=== PATIENT | male | born 1985 | race Caucasian/White ===

== ENCOUNTER 2019-10-02 15:14 | Outpatient (REF) | payer MEDICAID, SELFPAY ==
[2019-10-02 19:15] LABS: Abs Immature Grans 0.02 10^3/uL (0.0-0.06); Absolute Basophil Count 0.02 10^3/uL (0.0-0.2); Absolute Eosinophil Count 0.19 10^3/uL (0.0-0.7); Absolute Lymphocyte Count 2.32 10^3/uL (1.2-3.4); Absolute Monocyte Count 0.42 10^3/uL (0.1-0.8); Absolute Neutrophil Count 4.36 10^3/uL (1.2-6.7); Basophils % 0.3; Eosinophils % 2.6; HCT 46.6 % (40.0-50.0); HGB 15.8 g/dL (13.5-17.5); Immature Grans % 0.3; Lymphocytes % 31.7; MCH 29.4 pg (27.0-33.0); MCHC 33.9 % (32.0-36.0); MCV 86.6 fL (80-95); MPV 11.3 fL (8.0-11.0); Monocytes % 5.7; Neutrophils % 59.4; Nucleated RBC 0 %; Platelet Count 213 10^3/uL (130-400); RBC 5.38 10^6/uL (4.36-5.78); RDW 12.2 % (11.8-14.1); RDW-SD 38.9 fL; WBC 7.33 10^3/uL (4.4-10.8)
[2019-10-02 19:39] LABS: Hemoglobin A1C 8.3 % (3.8-5.6)
[2019-10-02 19:41] LABS: ALT 28 U/L (16-63); AST 11 U/L (15-37); Albumin 4.3 g/dL (3.4-5.0); Alkaline Phosphatase 89 U/L (46-116); Anion Gap 9.5 mmol/L (3-11); BUN 15 mg/dL (7-18); Bilirubin, Total 0.6 mg/dL (0.2-1.0); CO2 30.5 mmol/L (21.0-32.0); Calcium 9.4 mg/dL (8.5-10.1); Calculated LDL 165 mg/dL (<100); Chloride 103 mmol/L (98-107); Cholesterol 240 mg/dL (<200); Glucose 45 mg/dL (74-106); HDL Cholesterol 54 mg/dL (40-60); Potassium 3.9 mmol/L (3.5-5.1); Sodium 143 mmol/L (136-145); TSH (W/Ref FT4) 1.09 uIU/mL (0.36-3.74); Total Protein 7.6 g/dL (6.4-8.2); Triglyceride 107 mg/dL (<150)
== END 2019-10-02 15:34 ==
LOC: NCHCN 15:14
PROVIDERS: Visit Provider Physician Assistant
DX: E78.5 Hyperlipidemia, unspecified (principal); E10.9 Type 1 diabetes mellitus without complications; F41.8 Other specified anxiety disorders
CPT/HCPCS: 80053; 80061; 83036; 84443; 85025

== ENCOUNTER 2020-01-02 12:01 | Outpatient (REF) | payer MEDICAID, SELFPAY ==
[2020-01-02 21:38] LABS: COMMENT (LAB VIEW ONLY) 71.54 mg/dL; Microalb ug/mg Crea 96.6 ug/mg Cr
[2020-01-02 21:44] LABS: ALT 22 U/L (16-63); AST 7 U/L (15-37); Alkaline Phosphatase 100 U/L (46-116); Anion Gap 8.1 mmol/L (3-11); BUN 28 mg/dL (7-18); Bilirubin, Total 0.4 mg/dL (0.2-1.0); CO2 33.9 mmol/L (21.0-32.0); Calcium 9.4 mg/dL (8.5-10.1); Calculated LDL 116 mg/dL (<100); Chloride 101 mmol/L (98-107); Cholesterol 189 mg/dL (<200); Glucose 147 mg/dL (74-106); HDL Cholesterol 57 mg/dL (40-60); Sodium 143 mmol/L (136-145); Total Protein 7.5 g/dL (6.4-8.2); Triglyceride 82 mg/dL (<150)
== END 2020-01-02 12:21 ==
LOC: NCHCN 12:01
PROVIDERS: PCP Physician Assistant; Visit Provider Physician Assistant
DX: E78.5 Hyperlipidemia, unspecified (principal); F41.8 Other specified anxiety disorders
CPT/HCPCS: 80053; 80061; 82043; 82570

== ENCOUNTER 2020-07-01 18:41 | Outpatient (REF) | payer MEDICAID, SELFPAY ==
[2020-07-01 17:10] LABS: Abs Immature Grans 0.01 10^3/uL (0.0-0.06); Absolute Basophil Count 0.03 10^3/uL (0.0-0.2); Absolute Eosinophil Count 0.37 10^3/uL (0.0-0.7); Absolute Lymphocyte Count 1.56 10^3/uL (1.2-3.4); Absolute Monocyte Count 0.42 10^3/uL (0.1-0.8); Absolute Neutrophil Count 4.58 10^3/uL (1.2-6.7); Basophils % 0.4; Eosinophils % 5.3; HCT 47.7 % (40.0-50.0); HGB 15.6 g/dL (13.5-17.5); Immature Grans % 0.1; Lymphocytes % 22.4; MCH 28.2 pg (27.0-33.0); MCHC 32.7 % (32.0-36.0); MCV 86.1 fL (80-95); MPV 11.3 fL (8.0-11.0); Neutrophils % 65.8; Nucleated RBC 0 %; Platelet Count 214 10^3/uL (130-400); RBC 5.54 10^6/uL (4.36-5.78); RDW 12.8 % (11.8-14.1); RDW-SD 39.9 fL; WBC 6.97 10^3/uL (4.4-10.8)
[2020-07-01 17:58] LABS: ALT 26 U/L (16-63); AST 12 U/L (15-37); Albumin 3.9 g/dL (3.4-5.0); Alkaline Phosphatase 90 U/L (46-116); Anion Gap 9.3 mmol/L (3-11); BUN 13 mg/dL (7-18); Bilirubin, Total 0.4 mg/dL (0.2-1.0); CO2 30.7 mmol/L (21.0-32.0); CREATININE 0.8 mg/dL (0.70-1.30); Calcium 9.1 mg/dL (8.5-10.1); Calculated LDL 155 mg/dL (<100); Chloride 102 mmol/L (98-107); Cholesterol 223 mg/dL (<200); Glucose 94 mg/dL (74-106); HDL Cholesterol 49 mg/dL (40-60); Potassium 4.1 mmol/L (3.5-5.1); Sodium 142 mmol/L (136-145); Total Protein 7.3 g/dL (6.4-8.2); Triglyceride 97 mg/dL (<150)
[2020-07-01 18:05] LABS: Microalb ug/mg Crea 138.3 ug/mg Cr
== END 2020-07-01 18:42 | disposition home or self-care (01) ==
LOC: NCHCN 18:41
PROVIDERS: PCP Physician Assistant; Visit Provider Physician Assistant
DX: E78.5 Hyperlipidemia, unspecified (principal); E10.9 Type 1 diabetes mellitus without complications
CPT/HCPCS: 80053; 80061; 82043; 82570; 85025

== ENCOUNTER 2022-06-03 09:40 | Outpatient (REF) | payer MEDICAID, SELFPAY ==
[2022-06-03 19:54] LABS: ALT 31 U/L (16-63); AST 17 U/L (15-37); Albumin 4.1 g/dL (3.4-5.0); Alkaline Phosphatase 91 U/L (46-116); Anion Gap 6.8 mmol/L (3-11); BUN 16 mg/dL (7-18); Bilirubin, Total 0.5 mg/dL (0.2-1.0); CO2 31.2 mmol/L (21.0-32.0); CREATININE 0.8 mg/dL (0.70-1.30); Calcium 10.2 mg/dL (8.5-10.1); Chloride 99 mmol/L (98-107); Estimated GFR 117.63 (mL/min/1.73m2); Glucose 163 mg/dL (74-106); Potassium 4.1 mmol/L (3.5-5.1); Sodium 137 mmol/L (136-145); Total Protein 7.9 g/dL (6.4-8.2)
== END 2022-06-03 09:41 | disposition home or self-care (01) ==
LOC: NCHCN 09:40
PROVIDERS: PCP Physician Assistant; Visit Provider Physician Assistant
DX: E10.3593 Type 1 diabetes mellitus with proliferative diabetic retinopathy without macular edema, bilateral (principal)
CPT/HCPCS: 80053

== ENCOUNTER 2023-03-31 19:20 | Outpatient (REF) | payer MEDICAID, SELFPAY ==
--- OUTSIDE RECORDS SUMMARY | 2023-03-31 19:24 | XMS_ITS | Continuity of Care Document ---
Author Name [facility] Address [address] [place] [address] Organization [facility] Address [address] [place] [address] Care Team Providers Care Campus Recruiter Name Role Phone Rae Moses Primary Care Physician Allergies, Adverse Reactions, Alerts No known allergies. Medications Active Medications Medication Units Route Start Date Status Venlafaxine MG ORAL June 24, 2021 Active Atorvastatin MG June 24, 2021 Active Insulin Aspart U-100 [Novolo g U-100 Insulin Aspart] June 24, 2021 Active Blood-Glucose Sensor [Dexcom G6 Sensor] EA MULTIPL E ROUTES June 24, 2021 Active Blood-Glucose Transmitter [D excom G6 Transmitter] EA MULTIPLE ROUTES June 24, 2021 Active Problem List No problem information available. Procedures Procedure Date Status Wrist 3 vw Min LT June 24, 2021 completed Hand 3 vw Min LT June 24, 2021 completed Relevant Diagnostic Tests and/or Laboratory Data No known relevant diagnostic tests, laboratory data, and/or discharge summary. Advance Directives Advance Directive Response Recorded Date/ Time Do we have a copy on file here at [facility]? No June 24, 2021 4:48pm Does patient have an Advanced Directive? No June 24, 2021 4:48pm Pt has a Living Will? No June 24 4:48pm Pt has a Power of Lining Presser? No June 24, 2021 4:48pm Hospital Discharge Instructions No known hospital discharge instructions. Hospital Discharge Medications Medication Dose Units Route Sig Qty Days Order Date Status Ins tructions Venlafaxine MG ORAL June 24, 2021 Active Atorvastatin MG June 24, 2021 Active Insulin Aspart U-100 June 24, 2021 Active Blood-Glucose Sensor EA MULTIPLE ROUTES June 24, 2021 Active Blood-Glucose Transmitter EA MULTIPLE ROUTES June 24, 2021 Active Encounters Encounter Facility Location Admit/Visit Date Discharge/Departure Date Attending Provider Registered Emergency [facility] [place] June 24, 2021 4:42pm Functional Status Query Response Date Recorded Comment Living Situation Home June 24, 2021 5:24pm Immunizations No known immunizations. Plan of Care No Known Plan of Care Information Social History Query Response Date Recorded Comment Alcohol Use Yes June 24, 2021 5:24pm Smoking Status Current some day smoker June 24, 2021 5: 24pm alcohol intake frequency a few times a month June 24, 2 022 5:24pm substance use type marijuana June 24, 2021 5:24pm Query Response Start Date Stop Date Smoking Status Current some day smoker Vital Signs Vital Reading Result Reference Range Collection Date/Time Weight 92.986 kg June 24, 2021 5: 24pm Temperature 98.1 F 97.6 F-99.6 F June 24, 2021 5 :24pm Pulse 79 BPM 60-100 June 24, 2021 5: 24pm Respiration 13 RPM 12-24 June 24, 2021 5: 24pm Pulse Oximetry 99 % 95-100 June 24, 2021 5:24pm Blood Pressure Systolic 128 100-140 June 24, 2021 5:24pm Blood Pressure Diastolic 62 50-85 June 24, 2021 5:24pm
--- OUTSIDE RECORDS SUMMARY | 2023-03-31 19:24 | XMS_ITS | Continuity of Care Document ---
Author Name [facility] Address [address] [place] [address] Organization [facility] Address [address] [place] [address] Care Team Providers Care Library Services Coordinator Name Role Phone Rae Moses Primary Care Physician [phone] Allergies, Adverse Reactions, Alerts No known allergies. [...] 3 vw Min LT June 24, 2021 active Hand 3 vw Min LT June 24, 2021 completed Relevant Diagnostic Tests and/or Laboratory Data No known relevant diagnostic tests, laboratory data, and/or discharge summary. Advance Directives Advance Directive Response Recorded Date/ Time Do we have a copy on file here at [facility]? No June 24, 2021 4:48pm Does patient have an Advanced Directive? No June 24, 2021 4:48pm Pt has a Living Will? No June 24 4:48pm Pt has a Power of Ep Specialist? No June 24, 2021 4:48pm Hospital Discharge [...] Date Discharge/Departure Date Attending Provider Registered Emergency [facility] [place] June 24, 2021 4:42pm Functional [...]
--- OUTSIDE RECORDS SUMMARY | 2023-03-31 19:24 | XMS_ITS | Continuity of Care Document ---
Author Name [facility] Address [address] [place] [address] Organization [facility] Address [address] [place] [address] Care Team Providers Care Music Instructor Name Role Phone Rae Moses Primary Care [...] ROUTES June 24, 2021 Active Problem List Inactive/Resolved Problems Medical Problem Onset Date Status Left wrist sprain Inactive Procedures Procedure Date Status Wrist 3 vw Min LT June 24, 2021 completed Hand 3 vw Min LT June 24, 2021 completed Relevant Diagnostic Tests and/or Laboratory Data No known relevant diagnostic tests, laboratory data, and/or discharge summary. Advance Directives Advance Directive Response Recorded Date/ Time Do we have a copy on file here at [facility]? No June 24, 2021 4:48pm Does patient have an Advanced Directive? No June 24, 2021 4:48pm Pt has a Living Will? No June 24 4:48pm Pt has a Power of Aerospace Mechanic? No June 24, 2021 4:48pm Hospital Discharge Instructions Additional Discharge Instructions Remove the wrist splint multiple times throughout the day to perform gentle range of motion exercises. Apply ice to the area of pain for 15-minute periods every 3 hours. Use Tylenol and/or ibuprofen as needed for pain relief. Follow-up with your primary care provider for repeat x-rays if pain/range of motion does not improve within the week. No Instructions/Education Pr ovided Hospital Discharge Medications Medication Dose Units Route Sig Qty Days Order Date Status Ins tructions Venlafaxine MG ORAL June 24, 2021 Active Atorvastatin MG June 24, 2021 Active Insulin Aspart U-100 June 24, 2021 Active Blood-Glucose Sensor EA MULTIPLE ROUTES June 24, 2021 Active Blood-Glucose Transmitter EA MULTIPLE ROUTES June 24, 2021 Active Encounters Encounter Facility Location Admit/Visit Date Discharge/Departure Date Attending Provider Departed Emergency [facility] June 24, 2021 4:42pm June 24, 2021 6:42pm Functional Status Query Response Date Recorded Comment [...]
--- OUTSIDE RECORDS SUMMARY | 2023-03-31 19:24 | XMS_ITS | Continuity of Care Document ---
Author Name Unknown Organization [facility] Address [address] [place] [address] Care Team Providers Care Human Service Technician Name Role Phone Rae Moses Primary Care Physician [phone] Encounter [facility] Date(s): 03/01/23 - 03/01/[address] [address] Discharge Disposition: Home or Self Care Attending Physician: Chitra Olmedo APRN Admitting Physician: Chitra Olmedo APRN Referring Physician: Chitra Olmedo APRN Immunizations Given and Recorded Vaccine Date Status Refusal Reason SARS-CoV-2 (COVID-19) mRNA-1273 vaccine 06/03/20 R ecorded SARS-CoV-2 (COVID-19) mRNA-1273 vaccine 05/06/20 R ecorded Results Laboratory List Name Date Hepatic Function Panel 03/01/23 GGT 03/01/23 Most recent to oldest [Reference Range]: 1 AST [15-37 unit/L] 11 unit/L *LOW* (03/01/23 7:23 AM) ALT [16-63 unit/L] 20 unit/L (03/01/23 7:23 AM) Albumin Level [3.4-5.0 g/dL] 3.2 g/dL *LOW* (03/01/23 7:23 AM) Protein Total [6.4-8.2 g/dL] 6.8 g/dL (03/01/23 7:23 AM) Bilirubin Total [0.2-1.0 mg/dL] 0.3 mg/d L (03/01/23 7:23 AM) Alk Phos [46-146 unit/L] 80 unit/L (03/01/23 7:23 AM) Bilirubin Direct [0.00-0.20 mg/dL] 0.08 mg/dL (03/01/23 7:23 AM) GGT [15-85 unit/L] 16 unit/L (03/01/23 7:23 AM) Social History Social History Type Response Sex Male Patient Care team information Care Team Personnel Name: Rae Moses PA-C Position: PowerChart View Only Member Role: Informed Provider Address: Address: [address] [address]- [place] Care Team Related Persons Name: SIN BRIGHT
--- OUTSIDE RECORDS SUMMARY | 2023-03-31 19:24 | XMS_ITS | Continuity of Care Document ---
Author Name [facility] Address [address] [place] [address] Organization [facility] Address [address] [place] [address] Care Team Providers Care Senior Center Director Name Role Phone Rae Moses Primary Care [...] ROUTES June 24, 2021 Active Problem List Active Problems Medical Problem Onset Date Status Left wrist sprain Active Procedures Procedure Date Status Wrist 3 vw Min LT June 24, 2021 completed Hand 3 vw Min LT June 24, 2021 completed Relevant Diagnostic Tests and/or Laboratory Data No known relevant diagnostic tests, laboratory data, and/or discharge summary. Advance Directives Advance Directive Response Recorded Date/ Time Do we have a copy on file here at [facility]? No June 24, 2021 4:48pm Does patient have an Advanced Directive? No June 24, 2021 4:48pm Pt has a Living Will? No June 24 4:48pm Pt has a Power of Air Control Electronics Operator? No June 24, 2021 4:48pm Hospital Discharge [...] Date Discharge/Departure Date Attending Provider Departed Emergency [facility] Urgent [facility] June 24, 2021 4:42pm June 24, 2021 [...]
--- OUTSIDE RECORDS SUMMARY | 2023-03-31 19:24 | XMS_ITS | Continuity of Care Document ---
Author Name Unknown Address [address] [place] [address] [id number] [address] [facility] Address [address] [place] [address] Phone Care Team Providers Care It Network Administrator Name Role Phone LINH Moses Primary Care Provider Allergies, Adverse Reactions, Alerts No known allergies Social History Smoking Status Status Start Date End Date Date of Observa tion Current some day smoker June 24, 2021 5:24pm Observation Status Observation Response Date of Response Alcohol Use Yes June 24, 2021 5 :24pm alcohol intake frequency a few times a month June 24, 2021 5:24pm substance use type marijuana June 24 5:24pm Smoking Status Current some day smoker June 5:24pm Additional Data Assigned Sex Male Problems Active Problems Medical Problem Onset Date Status Left wrist sprain Active Medications Medication Status Dose Units Route Directions Qty Days St art Date End Date Instructions Venlafaxine Active MG PO June 24, 2021 5:23pm Atorvastatin Active MG TABLET June 24, 2021 5:23pm Insulin Aspart U-100 (Novolog U-100 Insulin Aspart) 100 unit/mL solution Active SOLUTION June 24, 2021 5:23pm Blood-Glucose Sensor (Dexcom G6 Sensor) device Active EA MR June 24, 2021 5:23pm Blood-Glucose Transmitter (Dexcom G6 Transmitter) device Active EA MR June 24, 2021 5:23pm Procedures Procedure Date Performed Status Hand 3 vw Min LT June 24, 2021 5:34pm completed Wrist 3 vw Min LT June 24, 2021 5:34pm complete d Relevant Diagnostic Tests and/or Laboratory Data Diagnostic Imaging Reports Report Dictated Date/Time Dictated By Status Radiology Report June 24, 2021 6:16pm Rosalinda mckeon MD completed [facility] RADIOLOGY REPORT PATIENT NAME: SHYAM TSANG 89 DATE OF : 1985 ATTENDING/ER PHYSICIAN: ER/ATTENDING PHYSICIAN: Lillian Evans NP PRIMARY CARE PHYS: LINH Leslie ADMITTING PHYSICIAN: CONSULTING PHYSICIAN: PROCEDURE DATE: 06/24/21 REPORT STATUS: Signed DICTATING PHYSICIAN: Rosalinda Saunders MD REASON FOR EXAM: TTP 1st MC PROCEDURE INFORMATION: Exam: XR Left Hand Exam date and time: 06/24/2021 5:48 PM Age: 35 years old Clinical indication: Pain; Hand; Left; Additional info: Ttp 1st mc TECHNIQUE: Imaging protocol: XR Left hand. Views: 3 or more views. COMPARISON: No relevant prior studies available. FINDINGS: Bones/joints: The bones appear intact. There is no evidence of acute or healing fracture. There is no bone destruction or periosteal reaction. The joints are normally aligned and articulated. Soft tissues: The soft tissues are within normal limits. IMPRESSION: No acute osseous pathology appreciated. Electronically Signed By : Rosalinda Saunders MD dd: [id number]/24/[id number]/[id number] Report Dictated Date/Time Dictated By Status Radiology Report June 24, 2021 6:18pm Rosalinda mckeon MD completed [facility] RADIOLOGY REPORT PATIENT NAME: SHYAM TSANG 89 DATE OF : 1985 ATTENDING/ER PHYSICIAN: ER/ATTENDING PHYSICIAN: Lillian Evans NP PRIMARY CARE PHYS: LINH Leslie ADMITTING PHYSICIAN: CONSULTING PHYSICIAN: PROCEDURE DATE: 06/24/21 REPORT STATUS: Signed DICTATING PHYSICIAN: Rosalinda Saunders MD REASON FOR EXAM: Snuffbox tenderness PROCEDURE INFORMATION: Exam: XR Left Wrist Exam date and time: 06/24/2021 5:50 PM Age: 35 years old Clinical indication: Pain; Wrist; Left; Additional info: Snuffbox tenderness TECHNIQUE: Imaging protocol: XR Left wrist. Views: 3 or more views. COMPARISON: DX Hand 3 vw Min LT 06/24/2021 5:48 PM FINDINGS: Bones/joints: The bones appear intact. No acute fracture is identified. The joints are normally aligned and articulated. Soft tissues: The soft tissues are within normal limits. IMPRESSION: No acute osseous injury appreciated. Follow-up radiographs in 5-7 days may be helpful if there is ongoing clinical concern for occult fracture. Electronically Signed By : Rosalinda Saunders MD dd: 06/24/[id number]/[id number] Vital Signs Vital Reading Result Reference Range Collection Date/Time Weight 92.98 kg June 24, 2021 5:24pm Body Temperature 98.1 [degF] 97.6-99.6 June 24, 2 022 5:24pm Heart Rate 79 /min 60-100 June 24, 2021 5:24pm Respiratory rate 13 /min 12-24 June 24, 2 022 5:24pm Oxygen saturation by Pulse oximetry 99 % 95-10 0 June 24, 2021 5:24pm BP Systolic 128 mm[Hg] 100-140 June 24, 2021 5:24pm BP Diastolic 62 mm[Hg] 50-85 June 24, 2021 5:24pm Advance Directives Advance Directive Response Recorded Date/ Time Does patient have an Advanced Directive? No June 24, 2021 4:48pm Do we have a copy on file here at [facility]? No June 24, 2021 4:48pm Pt has a Living Will? No June 24, 2021 4:48pm Do we have a copy on file here at [facility]? No June 24, 2021 4:48pm Pt has a Power of Business Services Intern? No June 24, 2021 4:48pm Do we have a copy on file here at [facility]? No June 24, 2021 4:48pm Insurance Providers Guarantor SHYAM TSANG Address [address] [place] [address] Contact Info. Home Phone: Payer Policy Id Coverage Id Subscriber's Name Subscriber Id Effective Date Expiration Date SELF PAY Self N/A Encounters Encounter Location(s) Arrival/Admit Date Discharge/Depart Date Provider(s) Departed Emergency [facility] June 24, 2021 4:42pm June 24, 2021 6:42pm null Functional Status Observation Response Date Recorded Living Situation Home June 24, 2021 5:24pm Plan of Treatment Future Tests Future scheduled test information is unavailable Pending Tests Pending diagnostic test information is unavailable Future Visits Future appointment information is unavailable Referrals to Other Providers Reason for Referral Referral Start Date Provider Provider Contact Information Provider Address LINH Leslie Work Phone: [address] [place] [address] Future Procedures Future procedure information is unavailable Future Medications Future medication information is unavailable Patient Instructions Patient instructions are unavailable Hospital Discharge Instructions Additional Instructions Remove the wrist splint multiple times [...]
--- OUTSIDE RECORDS SUMMARY | 2023-03-31 19:24 | XMS_ITS | Continuity of Care Document ---
Author Name Unknown Organization [facility] Address [address] [place] [address] Care Team Providers Care Braille Typist Name Role Phone Rae Moses Primary Care Physician [phone] Encounter [facility] Date(s): 02/08/23 - 02/08/[address] [address] Discharge Disposition: Home or Self Care Attending Physician: Chitra Olmedo APRN Admitting Physician: Chitra Olmedo APRN Referring Physician: Chitra Olmedo APRN Immunizations Given and Recorded Vaccine Date Status Refusal Reason SARS-CoV-2 (COVID-19) mRNA-1273 vaccine 06/03/20 R ecorded SARS-CoV-2 (COVID-19) mRNA-1273 vaccine 05/06/20 R ecorded Results Laboratory List Name Date Automated Diff 02/08/23 CBC w/ Diff 02/08/23 GGT 02/08/23 Hepatic Function Panel 02/08/23 Most recent to oldest [Reference Range]: 1 WBC [5.0-10.0 x10^3/mcL] 9.5 x10^3/mcL (02/08/23 1:43 PM) RBC [4.6-6.0 x10^6/mcL] 4.9 x10^6/mcL (02/08/23 1:43 PM) Neutro Auto [40.0-75.0 %] 68.9 % (02/08/23 1:43 PM) Lymph Auto [20.0-50.0 %] 21.5 % (02/08/23 1:43 PM) Nicholas Auto [2.0-15.0 %] 5.3 % (02/08/23 1:43 PM) Basophil Auto [0.0-1.0 %] 0.3 % (02/08/23 1:43 PM) MCV [80.0-96.0 fL] 88.6 fL (02/08/23 1:43 PM) AST [15-37 unit/L] 9 unit/L *LOW* (02/08/23 1:43 PM) ALT [16-63 unit/L] 12 unit/L *LOW* (02/08/23 1:43 PM) MCHC [31.0-35.0 g/dL] 33.5 g/dL (02/08/23 1:43 PM) Hct [41.0-51.0 %] 43.6 % (02/08/23 1:43 PM) Albumin Level [3.4-5.0 g/dL] 3.1 g/dL *LOW* (02/08/23 1:43 PM) Protein Total [6.4-8.2 g/dL] 7.3 g/dL (02/08/23 1:43 PM) MCH [26.0-32.0 pg] 29.7 pg (02/08/23 1:43 PM) Neutro Absolute 6.6 x10^3/mcL *NA* (02/08/23 1:43 PM) Bilirubin Total [0.2-1.0 mg/dL] 0.2 mg/d L (02/08/23 1:43 PM) Hgb [14.0-18.0 g/dL] 14.6 g/dL (02/08/23 1:43 PM) Alk Phos [46-146 unit/L] 106 unit/L (02/08/23 1:43 PM) Bilirubin Direct [0.00-0.20 mg/dL] 0.08 mg/dL (02/08/23 1:43 PM) Platelets [130-450 x10^3/mcL] 281 x10^3/ mcL (02/08/23 1:43 PM) GGT [15-85 unit/L] 15 unit/L (02/08/23 1:43 PM) RDW-CV [11.5-14.5 %] 12.3 % (02/08/23 1:43 PM) Imm Gran Auto [0.0-0.9 %] 0.2 % (02/08/23 1:43 PM) Eos, Auto [1.0-6.0 %] 3.8 % (02/08/23 1:43 PM) Social History Social History Type Response Sex Male Patient Care team information Care Team Personnel Name: Rae Moses PA-C Position: PowerChart View Only Member Role: Informed Provider Address: Address: [id number] [place] [address] Care Team Related Persons Name: SIN BRIGHT
--- OUTSIDE RECORDS SUMMARY | 2023-03-31 19:24 | XMS_ITS | Continuity of Care Document ---
Author Name [facility] Address [address] [place] [address] Organization [facility] Address [address] [place] [address] Care Team Providers Care Certified Nutritionist Name Role Phone Rae Moses Primary Care [...] Problem List No problem information available. Procedures No known history of procedures. Relevant Diagnostic Tests and/or Laboratory Data No known relevant diagnostic tests, laboratory data, and/or discharge summary. Advance Directives Advance Directive Response Recorded Date/ Time Do we have a copy on file here at [facility] [place] No June 24, 2021 4:48pm Does patient have an Advanced Directive? No June 24, 2021 4:48pm Pt has a Living Will? No June 24 4:48pm Pt has a Power of Road Design Engineer? No June 24, 2021 4:48pm Hospital Discharge [...] Date Discharge/Departure Date Attending Provider Registered Emergency [facility] June 24, 2021 4:42pm Functional Status No known functional status. Immunizations No known immunizations. Plan of Care No Known Plan of Care Information Social History No known social history. Vital Signs No known vital signs results.
--- OUTSIDE RECORDS SUMMARY | 2023-03-31 19:24 | XMS_ITS | Continuity of Care Document ---
Author Name [facility] Address [address] [place] [address] Organization [facility] Address [address] [place] [address] Care Team Providers Care Shot Hole Driller Name Role Phone Rae Moses Primary Care [...] have a copy on file here at [facility]? No June 24, 2021 4:48pm Does patient have an Advanced Directive? No June 24, 2021 4:48pm Pt has a Living Will? No June 24 4:48pm Pt has a Power of Wire Turning Machine Operator? No June 24, 2021 4:48pm Hospital [...] Date Discharge/Departure Date Attending Provider Registered Emergency [facility] Urgent [facility] June 24, 2021 4:42pm Functional Status Query [...]
--- OUTSIDE RECORDS SUMMARY | 2023-03-31 19:24 | XMS_ITS | Continuity of Care Document ---
Author Name Unknown Organization [facility] Address [address] [place] [address] Care Team Providers Care Geological Manager Name Role Phone Rae Moses Primary Care Physician Encounter [facility] Date(s): 03/28/23 - 03/28/[address] [address] Discharge Disposition: Home or Self Care Attending Physician: Chitra Olmedo APRN Admitting Physician: Chitra Olmedo APRN Referring Physician: Chitra Olmedo APRN Immunizations Given and Recorded Vaccine Date Status Refusal Reason SARS-CoV-2 (COVID-19) mRNA-1273 vaccine 06/03/20 R ecorded SARS-CoV-2 (COVID-19) mRNA-1273 vaccine 05/06/20 R ecorded Results Laboratory List Name Date Valproic Acid Level 03/28/23 Most recent to oldest [Reference Range]: 1 Valproic Acid Level [50-100 ug/mL] 51 ug /mL (03/28/23 11:08 AM) Social History Social History Type Response Sex Male Patient Care team information Care Team Personnel Name: Rae Moses PA-C Position: PowerChart View Only Member Role: Informed Provider Address: Address: [address] [address] Care Team Related Persons Name: SIN BRIGHT
[2023-03-31 19:45] LABS: COMMENT (LAB VIEW ONLY) 36.97 mg/dL; Microalb ug/mg Crea 59.5 ug/mg Cr
== END 2023-03-31 19:21 | disposition home or self-care (01) ==
LOC: NCHCN 19:20
PROVIDERS: PCP Physician Assistant; Visit Provider Physician Assistant
DX: E10.9 Type 1 diabetes mellitus without complications (principal)
CPT/HCPCS: 82043; 82570